=== PATIENT | male | born 1995 | race Caucasian/White ===

== ENCOUNTER 2016-12-27 12:18 | Emergency (ER) | payer BC ==
[~2016-12-27] VITALS: Ht 175.3 cm; Wt 83.6 kg
[~2016-12-27 12:18] MED LIST: LISD40 PO
[2016-12-27 12:28] VITALS: BP 143/67; PULSE 116; RESP 22; TEMP 99.5; O2SAT 95
[2016-12-27 12:38] VITALS: BP 143/67; PULSE 116; RESP 18; TEMP 99.5; O2SAT 96
[2016-12-27 13:02] VITALS: BP 140/73; PULSE 111; RESP 16; TEMP 102.1; O2SAT 99
--- NOTE | 2016-12-27 13:08 | PD ---
HPI Chief Complaint: Cold / Flu Symptoms Time Seen by Provider: 12:56 Travel History International Travel<30 days: No Contact w/Intl Traveler<30days: No Traveled to known affect area: No History of Present Illness HPI This 21-year-old male is complaining of feeling sick since Sunday area and having headache and nausea. He has generalized malaise. He has myalgias. Fever and cough. Sunday he seemed to have a head cold seemed better on Sunday area and Sunday get quite sick after work and has not felt well since. He has had a lot of vomiting. Sometimes vomits even after drinking water. Complains of myalgias PFSH Past Medical History ADHD: Yes Diminished Hearing: No Immunizations Current: Yes Tetanus Vaccination: Unknown Influenza Vaccination: No Social History Alcohol Use: Yes (occas. beer) Tobacco Use: No Substance Use: Yes (states "smokes pot") Allergies-Medications (Allergen,Severity, Reaction): Coded Allergies: No Known Allergies (Unverified Adverse Reaction, Unknown, 12/27/16) Reported Meds & Prescriptions Reported Meds & Active Scripts Active No Active Prescriptions or Reported Medications Review of Systems General / Constitutional: Positive: Fever, Chills HENT: Positive: Sore Throat, Rhinitis Respiratory: Positive: Cough Gastrointestinal: Positive: Nausea, Vomiting Skin: No Rash Neurologic: Positive: Weakness Physical Exam Narrative GENERAL: Well-developed male. Temp is 102 and he is nauseated and weak SKIN: Focused skin assessment warm/dry. HEAD: Atraumatic. Normocephalic. EYES: Pupils equal and round. No scleral icterus. No injection or drainage. ENT: No nasal bleeding or discharge. Mucous membranes pink and moist. Pharynx is erythematous NECK: Trachea midline. No JVD. CARDIOVASCULAR: Regular rate and rhythm. No murmur appreciated. RESPIRATORY: No accessory muscle use. Clear to auscultation. Breath sounds equal bilaterally. GASTROINTESTINAL: Abdomen soft, non-tender, nondistended. Hepatic and splenic margins not palpable. MUSCULOSKELETAL: No obvious deformities. No clubbing. No cyanosis. No edema. NEUROLOGICAL: Awake and alert. No obvious cranial nerve deficits. Motor grossly within normal limits. Normal speech. PSYCHIATRIC: Appropriate mood and affect; insight and judgment normal. Data Data Last Documented VS Vital Signs Date Time Temp Pulse Resp B/P (MAP) Pulse Ox O2 Delivery O2 Flow Rate FiO2 12/27/16 14:35 102.0 12/27/16 13:02 111 16 99 Room Air Orders Orders Complete Blood Count With Diff (12/27/16 13:02) Basic Metabolic Panel (Bmp) (12/27/16 13:02) Influenzae A/B Antigen (12/27/16 13:02) Sodium Chlor 0.9% 1000 Ml Inj (Ns 1000 M (12/27/16 13:15) Sodium Chlor 0.9% 1000 Ml Inj (Ns 1000 M (12/27/16 13:15) Ondansetron Inj (Zofran Inj) (12/27/16 13:15) Acetaminophen (Tylenol) (12/27/16 13:15) Ketorolac Inj (Toradol Inj) (12/27/16 13:15) Ibuprofen (Motrin) (12/27/16 14:45) Labs Laboratory Tests Test 12/27/16 13:15 White Blood Count 10.6 TH/MM3 Red Blood Count 5.62 MIL/MM3 Hemoglobin 15.2 GM/DL Hematocrit 44.7 % Mean Corpuscular Volume 79.5 FL Mean Corpuscular Hemoglobin 27.1 PG Mean Corpuscular Hemoglobin Concent 34.0 % Red Cell Distribution Width 12.3 % Platelet Count 208 TH/MM3 Mean Platelet Volume 7.0 FL Neutrophils (%) (Auto) 89.7 % Lymphocytes (%) (Auto) 4.5 % Monocytes (%) (Auto) 5.5 % Eosinophils (%) (Auto) 0.1 % Basophils (%) (Auto) 0.2 % Neutrophils # (Auto) 9.5 TH/MM3 Lymphocytes # (Auto) 0.5 TH/MM3 Monocytes # (Auto) 0.6 TH/MM3 Eosinophils # (Auto) 0.0 TH/MM3 Basophils # (Auto) 0.0 TH/MM3 CBC Comment DIFF FINAL Differential Comment Blood Urea Nitrogen 11 MG/DL Creatinine 1.10 MG/DL Random Glucose 98 MG/DL Calcium Level 9.2 MG/DL Sodium Level 133 MEQ/L Potassium Level 3.7 MEQ/L Chloride Level 97 MEQ/L Carbon Dioxide Level 28.3 MEQ/L Anion Gap 8 MEQ/L Estimat Glomerular Filtration Rate 85 ML/MIN MDM Medical Decision Making Medical Screen Exam Complete: Yes Emergency Medical Condition: Yes Medical Record Reviewed: Yes Differential Diagnosis Differential includes pneumonia, influenza, viral syndrome Narrative Course Tests for influenza is negative. Patient will be started on Tamiflu and also given prescription for Zofran. He has received 2 L of IV fluids here Diagnosis Primary Impression: Influenza A Scripts Ondansetron Odt (Zofran Odt) 4 Mg Tab 4 MG SL Q6HR Y for Nausea/Vomiting for 10 Days, #30 TAB 0 Refills Prov: Dipesh Reese MD 12/27/16 Oseltamivir (Tamiflu) 75 Mg Cap 75 MG PO BID for Mgmt Viral Infection for 5 Days, #10 CAP 0 Refills Prov: Dipesh Reese MD 12/27/16 Disposition: 01 DISCHARGE HOME Condition: Stable Dipesh Reese MD Dec 27, 2016 13:08
[2016-12-27 13:15] VITALS: BP 132/69; PULSE 103; RESP 16
[2016-12-27] MEDS ORDERED: KETOROLAC TROMETHAMINE 30 MG/ML (IVP) VIAL IV PUSH ONE (13:15)
[2016-12-27] MEDS ORDERED: ACETAMINOPHEN 500 MG CPLT PO ONE (13:15)
[2016-12-27] MEDS ORDERED: ONDANSETRON HCL 4 MG/2 ML VIAL IV PUSH ONE (13:15)
[2016-12-27] MEDS ORDERED: SODIUM CHLOR 0.9% 1000 ML INJ 1,000 ML IV ONE ×2 (13:15)
[2016-12-27 13:24] LABS: AUTOMATED NEUTROPHIL # 9.5 TH/MM3 (1.8-7.7); BASOPHIL % 0.2 % (0.0-2.0); EOSINOPHIL % 0.1 % (0.0-4.0); HEMATOCRIT 44.7 % (39.0-51.0); HEMO FLAGS DIFF FINAL; LYMPH % 4.5 % (9.0-44.0); LYMPHOCYTE # 0.5 TH/MM3 (1.0-4.8); MEAN CELL VOLUME 79.5 FL (80.0-100.0); MEAN CORPUSCULAR HEMOGLOBIN 27.1 PG (27.0-34.0); MONO % 5.5 % (0.0-8.0); NEUT % 89.7 % (16.0-70.0); PLATELET COUNT 208 TH/MM3 (150-450); RED BLOOD COUNT 5.62 MIL/MM3 (4.50-5.90); RED CELL DISTRIBUTION WIDTH 12.3 % (11.6-17.2); WHITE BLOOD COUNT 10.6 TH/MM3 (4.0-11.0)
[2016-12-27 13:31] LABS: POTASSIUM 3.7 MEQ/L (3.5-5.1)
[2016-12-27 13:34] LABS: BICARBONATE 28.3 MEQ/L (21.0-32.0)
[2016-12-27 14:35] VITALS: BP 137/65; PULSE 100; RESP 16; TEMP 102
[2016-12-27] MEDS ORDERED: ZOFR4TAB3 SL (14:41)
[2016-12-27] MEDS ORDERED: OSEL75 PO (14:41)
[2016-12-27] MEDS ORDERED: IBUPROFEN 600 MG TAB PO ONE (14:45)
[2016-12-27 15:01] VITALS: BP 129/72
== END 2016-12-27 15:05 | disposition home or self-care (01) ==
LOC: PHED 12:18
DX: J10.89 Influenza due to other identified influenza virus with other manifestations (principal); F12.90 Cannabis use, unspecified, uncomplicated; B97.89 Other viral agents as the cause of diseases classified elsewhere
CPT/HCPCS: 80048; 85025; 87804; 96361; 96374; 96375; 99284; J1885; J2405; J7030